=== PATIENT | female | born 1950 | race Caucasian/White ===

== ENCOUNTER → 2019-07-04 | Outpatient (CLI) | payer MEDICARE, OTHER ==
[~2019-07-04] MED LIST: CYCL10TA9 PO; NAPR-243 PO; OXYC-12 PO
--- NOTE | 2019-07-04 10:23 | Diagnostic Imaging Report ---
INDICATION: Abnormal screening mammogram. COMPARISON: 06/28/2019 and 05/06/2011. TECHNIQUE: The current study was also evaluated with a Computer Aided Detection (CAD) system. 3D Tomographic imaging was also performed. FINDINGS: There are scattered fibroglandular densities in the left breast. The tiny nodular density seen in the axillary tail of the left breast was seen on prior exams and appears to be a benign lymph node. There is no other dominant mass, spiculated lesion, or suspicious calcification identified. The skin, nipples, and axillae are unremarkable. IMPRESSION: Benign findings. ACR BI-RADS Category 2: Benign findings. Result letter will be mailed to the patient. Note: At least 10% of breast cancer is not imaged by mammography. Dictated by: Dictated on workstation # [id number]
== END ==
LOC: RAD 08:45
PROVIDERS: ATTEND Physician Assistant Medical
DX: R92.8 Other abnormal and inconclusive findings on diagnostic imaging of breast (principal)

== ENCOUNTER 2021-07-09 09:35 | Outpatient (CLI) | payer MEDICARE, OTHER ==
[~2021-07-09] VITALS: Ht 167.6 cm; Wt 74.8 kg
[2021-07-09] MEDS ORDERED: AMLO10TA4 PO (12:35)
[2021-07-09] MEDS ORDERED: LEVO100C4 PO (12:35)
[2021-07-09] MEDS ORDERED: LISI40TA9 PO (12:35)
[2021-07-09] MEDS ORDERED: CHOL400T29 PO (12:35)
[2021-07-09] MEDS ORDERED: MULT-593 PO (12:36)
== END 2021-07-09 14:10 ==
LOC: PREOP 09:35
PROVIDERS: ATTEND Surgery
DX: Z01.818 Encounter for other preprocedural examination (principal)

== ENCOUNTER 2021-07-20 07:56 | Day surgery (SDC) | payer MEDICARE, OTHER ==
[~2021-07-20] VITALS: Ht 167.6 cm; Wt 74.8 kg
[~2021-07-20 07:56] MED LIST changes: +AMLO10TA4 PO; +CHOL400T29 PO; +LEVO100C4 PO; +LISI40TA9 PO; +MULT-593 PO
[2021-07-20] MEDS ORDERED: LACTATED RINGERS 1,000 ML IV STA (07:57)
[2021-07-20] MEDS ORDERED: LACTATED RINGERS 1,000 ML IV ONE (08:00)
[2021-07-20 08:10] VITALS: BP 195/78
--- NOTE | 2021-07-20 08:15 | Progress Note-Pre Operative ---
Pre-Operative Progress Note H&P Reviewed The H&P was reviewed, patient examined and no changes noted. Time Seen by Provider: 08:11 Date H&P Reviewed: Jul 20, 2021 Time H&P Reviewed: 08:11 Pre-Operative Diagnosis: +CologHALEY Garcia DO Jul 20, 2021 08:15
[2021-07-20] MEDS ORDERED: PROPOFOL INJECTION 50 ML IV ONE (09:19)
[2021-07-20 09:50] VITALS: BP 102/56
[2021-07-20 09:55] VITALS: BP 103/57
--- NOTE | 2021-07-20 09:59 | Progress Note-Post Operative ---
Post-Operative Progess Note Surgeon (s)/Fur Clipper (s) Surgeon HALEY ORTA DO Fur Clipper: SONA Avila Pre-Operative Diagnosis +Cologuard Post-Operative Diagnosis polyps diverticula int hemorrhoids grade II Procedure & Operative Findings Date of Procedure 07/20/21 Procedure Performed/Findings Colonoscopy with snare polypectomy PROCEDURE NOTE: After informed consent was obtained, the patient was brought to the endoscopy suite, placed in bed in left lateral decubitus position. She was administered IV sedation by the INSPECTOR AND ADJUSTER [employer] HEAD who then monitored her vitals the entire time, heart rate, blood pressure and pulse ox and the scope was inserted and on the way in noted multiple large diverticula. Pushed all the way to about 110 cm into the cecum, took a picture of appendiceal orifice and noted the ileocecal valve. Then slowly withdrew the scope insufflating to look circumferentially at the ashton; starting in the cecum, up the ascending colon to the hepatic flexure, then down the transverse colon to the splenic flexure. In the descending colon saw a flat polyp and did a snare polypectomy. Then continued down into the sigmoid where I saw a large polyp that I removed with a snare and then had to suction it up to the scope and pull the scope completely out. Then reinserted the scope and pulled back into the rectum; where I saw at least 4-5 polyps, removed 3 with snare polypectomy and finally retroflexed the scope in the rectal vault; took a picture of the internal hemorrhoids. The patient tolerated the procedure. She was recovered in endoscopy suite. Anesthesia Type IV sedation by INSPECTOR AND ADJUSTER [employer] HEAD Estimated Blood Loss Estimated blood loss (mL): scant Specimens/Packing Specimens Removed descending polyp sigmoid polyp rectal polyp x 3 HALEY ORTA DO Jul 20, 2021 09:59
[2021-07-20 10:00] VITALS: BP 101/62
--- NOTE | 2021-07-20 10:00 | Endoscopy Discharge Instruct ---
Endo Procedure/Findings Findings 1.: Polyp 2.: Diverticulosis 3.: Internal Hemorrhoids Discharge Instructions - Activity: You might feel a little sleepy until tomorrow. This is due to the medicine you received to relax you. Until tomorrow, you should: NOT drive a car, operate machinery or power tools. NOT drink any alcoholic beverages. NOT make any important decisions or sign importortant papers. Do not return to work until tomorrow, unless otherwise instructed. Resume previous activities tomorrow. Diet: Start by taking liquids. If you tolerate liquids, advance to solid food. 1.: Colonscopy in 3 years Notify Physician - If you experience excessive bleeding, unusual abdominal pain, fever, or chest pain, contact your doctor immediately. HALEY ORTA DO Jul 20, 2021 10:00
[2021-07-20 10:05] VITALS: BP 101/62
--- NOTE | 2021-07-20 10:27 | Anesthesia-General Post-Op ---
MAC Patient Condition Mental Status/LOC: Same as Preop Cardiovascular: Satisfactory Nausea/Vomiting: Absent Respiratory: Satisfactory Pain: Controlled Complications: Absent Post Op Complications Complications None Follow Up Care/Instructions Patient Instructions None needed. Anesthesiology Discharge Order Discharge Order Patient is doing well, no complaints, stable vital signs, no apparent adverse anesthesia problems. No complications reported per nursing. LEONA CASTILLO CRNA Jul 20, 2021 10:27
[2021-07-20 10:35] VITALS: BP 101/62
== END 2021-07-20 10:35 | disposition home or self-care (01) ==
LOC: ENDO 07:56
PROVIDERS: ATTEND Surgery
DX: K64.1 Second degree hemorrhoids (principal); K62.1 Rectal polyp; D12.4 Benign neoplasm of descending colon; D12.5 Benign neoplasm of sigmoid colon; K57.30 Diverticulosis of large intestine without perforation or abscess without bleeding; R19.5 Other fecal abnormalities; I10 Essential (primary) hypertension; E03.9 Hypothyroidism, unspecified; Z79.890 Hormone replacement therapy; Z79.899 Other long term (current) drug therapy; Z87.891 Personal history of nicotine dependence; Z90.710 Acquired absence of both cervix and uterus; Z90.89 Acquired absence of other organs
CPT/HCPCS: 88305

== ENCOUNTER 2022-07-28 05:43 | Outpatient (CLI) | payer MEDICARE, OTHER ==
[~2022-07-28] VITALS: Ht 167.6 cm; Wt 78.3 kg
== END 2022-07-29 13:32 ==
LOC: PREOP 05:43
PROVIDERS: ATTEND Surgery
DX: Z01.818 Encounter for other preprocedural examination (principal)

== ENCOUNTER 2022-08-09 07:25 | Day surgery (SDC) | payer MEDICARE, OTHER ==
[~2022-08-09] VITALS: Ht 167.6 cm; Wt 78.3 kg
[2022-08-09] MEDS ORDERED: LACTATED RINGERS 1,000 ML IV STA (07:41)
[2022-08-09 07:43] VITALS: BP 181/80
[2022-08-09] MEDS ORDERED: PROPOFOL INJECTION 0 ML IV ONE (07:43)
--- NOTE | 2022-08-09 08:21 | Progress Note-Pre Operative ---
Pre-Operative Progress Note Date of Available H&P: Aug 26, 2022 Date H&P Reviewed: Aug 09, 2022 Time H&P Reviewed: 08:16 History & Physical: H&P Reviewed, Patient Examed, No changes noted Pre-Operative Diagnosis: Hx of polyps HALEY ORTA DO Aug 09, 2022 08:21
[2022-08-09] MEDS ORDERED: PROPOFOL INJECTION 50 ML IV ONE (09:01)
[2022-08-09 09:30] VITALS: BP 154/75
--- NOTE | 2022-08-09 09:30 | Anesthesia-General Post-Op ---
MAC Patient Condition Mental Status/LOC: Same as Preop Cardiovascular: Satisfactory Nausea/Vomiting: Absent Respiratory: Satisfactory Pain: Controlled Complications: Absent Post Op Complications Complications None Follow Up Care/Instructions Patient Instructions None needed. Anesthesiology Discharge Order Discharge Order Patient is doing well, no complaints, stable vital signs, no apparent adverse anesthesia problems. No complications reported per nursing. LEONA CASTILLO CRNA Aug 09, 2022 09:30
[2022-08-09 09:35] VITALS: BP 145/72
--- NOTE | 2022-08-09 09:35 | Progress Note-Post Operative ---
Post-Operative Progess Note Surgeon (s)/Coal Dumping Equipment Operator (s) Surgeon HALEY ORTA DO Coal Dumping Equipment Operator: DILAN Cornell Pre-Operative Diagnosis Hx of polyps Post-Operative Diagnosis polyps diverticula int hemorrhoids Procedure & Operative Findings Date of Procedure 08/09/22 Procedure Performed/Findings colonoscopy with cold biopsy PROCEDURE NOTE: After informed consent was obtained, the patient was brought to the endoscopy suite, placed in bed in left lateral decubitus position. She was administered IV sedation by the SKEIN YARN DYER HELPER who then monitored her vitals the entire time, heart rate, blood pressure and pulse ox and the scope was inserted, pushed all the way to about 150 cm and pushed into the cecum, took a picture of appendiceal orifice and then slowly withdrew the scope insufflating to look circumferentially at the ashton starting in the cecum, up the ascending colon to the hepatic flexure, then down the transverse colon, splenic flexure, into the descending colon down and down into the sigmoid. Mulitple large diverticula were seen throughout left colon and few were found on the right side. In the rectum found two small polyps, removed by cold biopsy. Finally into the rectal vault and retroflexed the scope. Took a picture of some minimal internal hemorrhoids. The patient tolerated the procedure. She was recovered in endoscopy suite. Recommended for repeat colonoscopy in 5 years. Anesthesia Type IV sedation by SKEIN YARN DYER HELPER Estimated Blood Loss Estimated blood loss (mL): scant Specimens/Packing Specimens Removed rectal polyp x 2 HALEY ORTA DO Aug 09, 2022 09:35
--- NOTE | 2022-08-09 09:36 | Endoscopy Discharge Instruct ---
Endo Procedure/Findings Findings 1.: Polyp 2.: Diverticulosis 3.: Internal Hemorrhoids Discharge Instructions - Activity: You might feel a little sleepy until tomorrow. This is due to the medicine you received to relax you. Until tomorrow, you should: NOT drive a car, operate machinery or power tools. NOT drink any alcoholic beverages. NOT make any important decisions or sign importortant papers. Do not return to work until tomorrow, unless otherwise instructed. Resume previous activities tomorrow. Diet: Start by taking liquids. If you tolerate liquids, advance to solid food. 1.: Colonscopy in 5 years Notify Physician - If you experience excessive bleeding, unusual abdominal pain, fever, or chest pain, contact your doctor immediately. HALEY ORTA DO Aug 09, 2022 09:36
[2022-08-09 09:40] VITALS: BP 145/72
== END 2022-08-09 10:00 | disposition home or self-care (01) ==
LOC: ENDO 07:25
PROVIDERS: ATTEND Surgery
DX: K63.5 Polyp of colon (principal); K57.30 Diverticulosis of large intestine without perforation or abscess without bleeding; K64.8 Other hemorrhoids; Z87.891 Personal history of nicotine dependence; Z28.311 Partially vaccinated for COVID-19